=== PATIENT | female | born 1990 | race Caucasian/White ===

== ENCOUNTER 2022-08-20 09:13 | Outpatient (CLI) | payer BC, MEDICAID ==
[2022-08-20] MEDS ORDERED: BETAMET ACET-BETAMETH SOD PHOS 6 MG/ML MDV IM SCH (09:30)
== END 2022-08-20 09:30 | disposition home or self-care (01) ==
LOC: FBPOP 09:13
PROVIDERS: ATTEND Obstetrics & Gynecology
DX: Z34.03 Encounter for supervision of normal first pregnancy, third trimester (principal); Z3A.35 35 weeks gestation of pregnancy; Z88.2 Allergy status to sulfonamides